=== PATIENT | male | born 1975 | race African-American/Black ===

== ENCOUNTER 2024-04-06 10:02 | Inpatient (IN) | payer OTHER ==
[2024-04-06 11:21] VITALS: BMI 17.2
[2024-04-06] MEDS ORDERED: chlordiazePOXIDE HCL 25 MG CAPSULE PO PRN (11:31)
[2024-04-06] MEDS ORDERED: METHOCARBAMOL 500 MG TABLET PO PRN (11:32)
[2024-04-06] MEDS ORDERED: LOPERAMIDE HCL 2 MG CAPSULE PO PRN (11:32)
[2024-04-06] MEDS ORDERED: POLYETHYLENE GLYCOL (HEALTHYLAX) 3350 17 GM PACKET PO PRN (11:32)
[2024-04-06] MEDS ORDERED: IBUPROFEN 400 MG TABLET (FP) PO PRN (11:32)
[2024-04-06] MEDS ORDERED: ONDANSETRON *ODT* 4 MG TABLET SL PRN (11:32)
[2024-04-06] MEDS ORDERED: IBUPROFEN 600 MG TABLET (FP) PO PRN (11:32)
[2024-04-06] MEDS ORDERED: BENZOCAINE/MENTHOL (CHLORASEPTIC ) LOZENGE MM PRN (11:32)
[2024-04-06] MEDS ORDERED: BENZONATATE 200 MG CAPSULE PO PRN (11:32)
[2024-04-06] MEDS ORDERED: NICOTINE POLACRILEX 2 MG GUM BUC PRN (11:32)
[2024-04-06] MEDS ORDERED: DICYCLOMINE HCL 10 MG CAPSULE PO PRN (11:32)
[2024-04-06] MEDS ORDERED: MAG HYDROX/AL HYDROX/SIMETH 30 ML UNIT-DOSE CUP PO PRN (11:32)
[2024-04-06] MEDS ORDERED: P-EPHED 60MG/TRIPROLIDI 2.5MG TABLET PO PRN (11:32)
[2024-04-06] MEDS ORDERED: NICOTINE POLACRILEX 2 MG LOZENGE BC PRN (11:32)
[2024-04-06] MEDS ORDERED: guaiFENesin 600 MG TABLET.ER (FP) PO PRN (11:32)
[2024-04-06] MEDS ORDERED: ACETAMINOPHEN 325 MG TABLET (FP) PO PRN (11:32)
[2024-04-06] MEDS ORDERED: MAGNESIUM HYDROX 2400MG/30ML ORAL SUSPENSION 30 ML CUP PO PRN (11:32)
[2024-04-06] MEDS ORDERED: BISMUTH SUBSALICYLATE 524 MG/30 ML PO PRN (11:32)
[2024-04-06] MEDS: levETIRAcetam 500 MG TABLET (FP) PO SCH (13:30)
[2024-04-06] MEDS: chlordiazePOXIDE HCL 25 MG CAPSULE PO SCH (13:30)
[2024-04-06] MEDS: THIAMINE 100 MG TABLET PO SCH (22:08)
[2024-04-06] MEDS: MELATONIN 5 MG TABLETS PO SCH (22:09)
[2024-04-07] MEDS: PRENATAL VITAMINS W/ FOLIC ACID TABLET (FP) PO SCH (09:41)
[2024-04-07 11:26] LABS: POTASSIUM 3.9 mmol/L (3.5-5.1)
[2024-04-07 11:27] LABS: HEMATOCRIT 38.4 % (35.4-49); HEMOGLOBIN 12.4 GM/dL (11.7-16.9); MCH 30.8 pg (25.7-33.7); MCHC 32.2 g/dl (32.0-35.9); MEAN CELL VOLUME 95.6 fl (80-96); MEAN PLT VOLUME 7.8 fl (7.5-11.1); PLATELET COUNT 209 10^3/uL (134-434); RBC 4.02 M/mm3 (4.00-5.60); RDW 13.5 % (11.9-15.9); WHITE BLOOD COUNT 4.1 K/mm3 (4.0-10.0)
[2024-04-07 11:33] LABS: BLOOD UREA NITROGEN 13.3 mg/dL (7-18); CALCIUM 8.8 mg/dL (8.5-10.1)
[2024-04-07 11:34] LABS: ALBUMIN 3.4 g/dl (3.4-5.0); CREATININE 0.6 mg/dL (0.55-1.3)
[2024-04-07 11:38] LABS: BILIRUBIN,TOTAL 0.2 mg/dL (0.2-1); TOT PROT 6.6 g/dl (6.4-8.2)
[2024-04-07] MEDS: hydrOXYzine PAMOATE 25 MG CAPSULE (FP) PO PRN (22:18)
[2024-04-08] MEDS ORDERED: chlordiazePOXIDE HCL 25 MG CAPSULE PO SCH (05:00)
[2024-04-08] MEDS: chlordiazePOXIDE HCL 10 MG CAPSULE PO SCH (06:17)
[2024-04-09] MEDS ORDERED: chlordiazePOXIDE HCL 10 MG CAPSULE PO PRN
[2024-04-09] MEDS: chlordiazePOXIDE HCL 10 MG CAPSULE PO SCH (05:23)
[2024-04-09] MEDS: NALTREXONE HCL 50 MG TABLET PO SCH (09:43)
[2024-04-10] MEDS: chlordiazePOXIDE HCL 10 MG CAPSULE PO ONE (05:10)
[2024-04-10 08:37] VITALS: BP 117/80; PULSE 81; RESP 16; TEMP 97.5
[2024-04-10] MEDS: levETIRAcetam 500 MG TABLET (FP) PO SCH (09:18)
== END 2024-04-10 09:20 | disposition home or self-care (01) | DRG 775 ==
LOC: YASAS 10:02 → Y6N 12:02
PROVIDERS: ADMIT Allergy & Immunology; ATTEND Surgery
PROC: HZ2ZZZZ Detoxification Services for Substance Abuse Treatment (ICD-10-PCS; principal; 2024-04-06)
DX: F10.230 Alcohol dependence with withdrawal, uncomplicated (principal); F17.210 Nicotine dependence, cigarettes, uncomplicated; G40.909 Epilepsy, unspecified, not intractable, without status epilepticus
CPT/HCPCS: 36415; 80053; 80305; 85027; 86780; 93005; 93010

== ENCOUNTER 2024-07-03 19:44 | Inpatient (IN) | payer OTHER ==
[2024-07-03 20:20] VITALS: BMI 17.4
[2024-07-03] MEDS ORDERED: MAGNESIUM HYDROX 2400MG/30ML ORAL SUSPENSION 30 ML CUP PO PRN (20:37)
[2024-07-03] MEDS ORDERED: ACETAMINOPHEN 325 MG TABLET (FP) PO PRN (20:37)
[2024-07-03] MEDS ORDERED: LOPERAMIDE HCL 2 MG CAPSULE PO PRN (20:37)
[2024-07-03] MEDS ORDERED: POLYETHYLENE GLYCOL (HEALTHYLAX) 3350 17 GM PACKET PO PRN (20:37)
[2024-07-03] MEDS ORDERED: MAG HYDROX/AL HYDROX/SIMETH 30 ML UNIT-DOSE CUP PO PRN (20:37)
[2024-07-03] MEDS ORDERED: ONDANSETRON *ODT* 4 MG TABLET SL PRN (20:37)
[2024-07-03] MEDS ORDERED: IBUPROFEN 600 MG TABLET (FP) PO PRN (20:37)
[2024-07-03] MEDS ORDERED: DICYCLOMINE HCL 10 MG CAPSULE PO PRN (20:37)
[2024-07-03] MEDS ORDERED: BENZOCAINE/MENTHOL (CHLORASEPTIC ) LOZENGE MM PRN (20:37)
[2024-07-03] MEDS ORDERED: NICOTINE POLACRILEX 2 MG GUM BUC PRN (20:37)
[2024-07-03] MEDS ORDERED: BENZONATATE 200 MG CAPSULE PO PRN (20:37)
[2024-07-03] MEDS ORDERED: guaiFENesin 600 MG TABLET.ER (FP) PO PRN (20:37)
[2024-07-03] MEDS ORDERED: NICOTINE POLACRILEX 2 MG LOZENGE BC PRN (20:37)
[2024-07-03] MEDS ORDERED: BISMUTH SUBSALICYLATE 524 MG/30 ML PO PRN (20:37)
[2024-07-03] MEDS ORDERED: IBUPROFEN 400 MG TABLET (FP) PO PRN (20:37)
[2024-07-03] MEDS: METHOCARBAMOL 500 MG TABLET PO PRN (22:13)
[2024-07-03] MEDS: MELATONIN 5 MG TABLETS PO SCH (22:13)
[2024-07-03] MEDS: GABAPENTIN 100 MG CAPSULE PO SCH (22:13)
[2024-07-03] MEDS: levETIRAcetam 500 MG TABLET (FP) PO SCH (22:13)
[2024-07-03] MEDS: THIAMINE 100 MG TABLET PO SCH (22:13)
[2024-07-03] MEDS: chlordiazePOXIDE HCL 25 MG CAPSULE PO PRN (22:14)
[2024-07-04] MEDS: chlordiazePOXIDE HCL 25 MG CAPSULE PO SCH (05:17)
[2024-07-04] MEDS: PRENATAL VITAMINS W/ FOLIC ACID TABLET (FP) PO SCH (10:22)
[2024-07-04 11:42] LABS: HEMATOCRIT 36.5 % (35.4-49); HEMOGLOBIN 12.5 GM/dL (11.7-16.9); MCH 31.8 pg (25.7-33.7); MCHC 34.1 g/dl (32.0-35.9); MEAN CELL VOLUME 93.2 fl (80-96); MEAN PLT VOLUME 7.1 fl (7.5-11.1); PLATELET COUNT 209 10^3/uL (134-434); RBC 3.92 M/mm3 (4.00-5.60)
[2024-07-04 11:55] LABS: POTASSIUM 4.1 mmol/L (3.5-5.1)
[2024-07-04 11:58] LABS: ALBUMIN 3.9 g/dl (3.4-5.0); BLOOD UREA NITROGEN 13.6 mg/dL (7-18)
[2024-07-04 11:59] LABS: CALCIUM 9.1 mg/dL (8.5-10.1)
[2024-07-04 12:01] LABS: CREATININE 0.7 mg/dL (0.55-1.3)
[2024-07-04 12:03] LABS: BILIRUBIN,TOTAL 0.7 mg/dL (0.2-1); TOT PROT 7.5 g/dl (6.4-8.2)
[2024-07-04] MEDS: hydrOXYzine PAMOATE 25 MG CAPSULE (FP) PO PRN (22:26)
[2024-07-05] MEDS ORDERED: chlordiazePOXIDE HCL 10 MG CAPSULE PO PRN
[2024-07-05] MEDS: chlordiazePOXIDE HCL 25 MG CAPSULE PO SCH (05:27)
[2024-07-05] MEDS: NALTREXONE HCL 50 MG TABLET PO SCH (10:20)
[2024-07-06] MEDS: chlordiazePOXIDE HCL 10 MG CAPSULE PO SCH (05:40)
[2024-07-07] MEDS: chlordiazePOXIDE HCL 10 MG CAPSULE PO SCH (05:55)
[2024-07-08] MEDS: chlordiazePOXIDE HCL 10 MG CAPSULE PO ONE (05:26)
[2024-07-08 06:08] VITALS: PULSE 72; RESP 17
[2024-07-08 08:58] VITALS: BP 122/75; TEMP 98.3
== END 2024-07-08 10:14 | disposition home or self-care (01) | DRG 775 ==
LOC: YASAS 19:44 → Y3N 21:30
PROVIDERS: ADMIT Allergy & Immunology; ATTEND Psychiatry & Neurology Pain Medicine
PROC: HZ2ZZZZ Detoxification Services for Substance Abuse Treatment (ICD-10-PCS; principal; 2024-07-03)
DX: F10.230 Alcohol dependence with withdrawal, uncomplicated (principal); F10.220 Alcohol dependence with intoxication, uncomplicated; F17.210 Nicotine dependence, cigarettes, uncomplicated; G40.909 Epilepsy, unspecified, not intractable, without status epilepticus; R00.0 Tachycardia, unspecified
CPT/HCPCS: 36415; 80053; 80305; 80307; 85027; 86780

== ENCOUNTER 2025-02-05 09:19 | Inpatient (IN) | payer OTHER ==
[2025-02-05 09:39] VITALS: BMI 18.3
[2025-02-05] MEDS ORDERED: MAGNESIUM HYDROX 2400MG/30ML ORAL SUSPENSION 30 ML CUP PO PRN (09:53)
[2025-02-05] MEDS ORDERED: DICYCLOMINE HCL 10 MG CAPSULE PO PRN (09:53)
[2025-02-05] MEDS ORDERED: IBUPROFEN 600 MG TABLET (FP) PO PRN (09:53)
[2025-02-05] MEDS ORDERED: ONDANSETRON *ODT* 4 MG TABLET SL PRN (09:53)
[2025-02-05] MEDS ORDERED: BENZOCAINE/MENTHOL (CHLORASEPTIC ) LOZENGE MM PRN (09:53)
[2025-02-05] MEDS ORDERED: IBUPROFEN 400 MG TABLET (FP) PO PRN (09:53)
[2025-02-05] MEDS ORDERED: POLYETHYLENE GLYCOL (HEALTHYLAX) 3350 17 GM PACKET PO PRN (09:53)
[2025-02-05] MEDS ORDERED: LOPERAMIDE HCL 2 MG CAPSULE PO PRN (09:53)
[2025-02-05] MEDS ORDERED: MAG HYDROX/AL HYDROX/SIMETH 30 ML UNIT-DOSE CUP PO PRN (09:53)
[2025-02-05] MEDS ORDERED: chlordiazePOXIDE HCL 25 MG CAPSULE PO PRN (09:53)
[2025-02-05] MEDS ORDERED: hydrOXYzine PAMOATE 25 MG CAPSULE (FP) PO PRN (09:53)
[2025-02-05] MEDS ORDERED: guaiFENesin 600 MG TABLET.ER (FP) PO PRN (09:53)
[2025-02-05] MEDS ORDERED: BISMUTH SUBSALICYLATE 262 MG/15 ML BTL PO PRN (09:53)
[2025-02-05] MEDS ORDERED: BENZONATATE 200 MG CAPSULE PO PRN (09:53)
[2025-02-05] MEDS ORDERED: NICOTINE POLACRILEX 2 MG GUM BUC PRN (09:53)
[2025-02-05] MEDS ORDERED: NALOXONE (NARCAN) HCL 4 MG/0.1 ML SPRAY NS PRN (09:53)
[2025-02-05] MEDS ORDERED: chlordiazePOXIDE HCL 25 MG CAPSULE ONE (10:31)
[2025-02-05] MEDS ORDERED: levETIRAcetam 500 MG TABLET (FP) PO ONE (10:31)
[2025-02-05] MEDS ORDERED: PRENATAL VITAMINS W/ FOLIC ACID TABLET (FP) PO ONE (10:31)
[2025-02-05] MEDS: chlordiazePOXIDE HCL 25 MG CAPSULE PO SCH ×2 (10:33→18:50)
[2025-02-05] MEDS: levETIRAcetam 500 MG TABLET (FP) PO SCH (10:33)
[2025-02-05] MEDS: PRENATAL VITAMINS W/ FOLIC ACID TABLET (FP) PO SCH (10:33)
[2025-02-05] MEDS: NALTREXONE HCL 50 MG TABLET PO ONE (18:50)
[2025-02-05] MEDS: THIAMINE 100 MG TABLET PO SCH (22:30)
[2025-02-05] MEDS: MELATONIN 5 MG TABLETS PO SCH (22:30)
[2025-02-06] MEDS: NALTREXONE HCL 50 MG TABLET PO SCH (10:19)
[2025-02-06 11:37] LABS: POTASSIUM 3.7 mmol/L (3.5-5.1)
[2025-02-06 11:44] LABS: ALBUMIN 3.7 g/dl (3.4-5.0); BLOOD UREA NITROGEN 9.2 mg/dL (7-18); CALCIUM 8.6 mg/dL (8.5-10.1)
[2025-02-06 11:49] LABS: CREATININE 0.7 mg/dL (0.55-1.3)
[2025-02-06 11:51] LABS: BILIRUBIN,TOTAL 0.3 mg/dL (0.2-1); TOT PROT 7.2 g/dl (6.4-8.2)
[2025-02-06 12:15] LABS: HEMATOCRIT 37.7 % (35.4-49); HEMOGLOBIN 12.5 GM/dL (11.7-16.9); MCH 30.5 pg (25.7-33.7); MCHC 33.2 g/dl (32.0-35.9); MEAN PLT VOLUME 7.5 fl (7.5-11.1); PLATELET COUNT 216 10^3/uL (134-434); RDW 13.3 % (11.9-15.9); WHITE BLOOD COUNT 4.9 K/mm3 (4.0-10.0)
[2025-02-06] MEDS: METHOCARBAMOL 500 MG TABLET PO PRN (22:05)
[2025-02-07] MEDS: chlordiazePOXIDE HCL 25 MG CAPSULE PO SCH (05:58)
[2025-02-07] MEDS: chlordiazePOXIDE HCL 10 MG CAPSULE PO SCH (10:10)
[2025-02-07] MEDS: ACETAMINOPHEN 325 MG TABLET (FP) PO PRN (17:07)
[2025-02-08] MEDS ORDERED: chlordiazePOXIDE HCL 10 MG CAPSULE PO PRN
[2025-02-08] MEDS ORDERED: chlordiazePOXIDE 5 MG CAPSULE PO ONE (05:00)
[2025-02-08] MEDS ORDERED: chlordiazePOXIDE HCL 10 MG CAPSULE PO SCH (05:00)
[2025-02-08] MEDS: chlordiazePOXIDE HCL 10 MG CAPSULE PO SCH (05:38)
[2025-02-08 09:03] VITALS: BP 128/84; PULSE 78; RESP 18; TEMP 97.7
[2025-02-09] MEDS ORDERED: chlordiazePOXIDE 5 MG CAPSULE PO SCH (05:00)
[2025-02-09] MEDS ORDERED: chlordiazePOXIDE HCL 10 MG CAPSULE PO SCH (05:00)
[2025-02-10] MEDS ORDERED: chlordiazePOXIDE HCL 10 MG CAPSULE PO ONE (05:00)
[2025-02-10] MEDS ORDERED: chlordiazePOXIDE 5 MG CAPSULE PO ONE (05:00)
== END 2025-02-08 09:24 | disposition home or self-care (01) | DRG 775 ==
LOC: YASAS 09:19 → Y3N 10:26
PROVIDERS: ADMIT Allergy & Immunology; ATTEND Allergy & Immunology
PROC: HZ2ZZZZ Detoxification Services for Substance Abuse Treatment (ICD-10-PCS; principal; 2025-02-05)
DX: F10.230 Alcohol dependence with withdrawal, uncomplicated (principal); F17.210 Nicotine dependence, cigarettes, uncomplicated; F10.282 Alcohol dependence with alcohol-induced sleep disorder; F10.280 Alcohol dependence with alcohol-induced anxiety disorder; F41.9 Anxiety disorder, unspecified; G40.909 Epilepsy, unspecified, not intractable, without status epilepticus
CPT/HCPCS: 36415; 80053; 80305; 80307; 82962; 85027; 86780; 93005; 93010